=== PATIENT | male | born 1940 | race Caucasian/White ===

== ENCOUNTER 2018-06-16 08:43 | Outpatient (CLI) | payer MEDICARE, OTHER ==
[~2018-06-16] VITALS: Ht 180.3 cm; Wt 72.6 kg
[2018-06-16] MEDS ORDERED: albuterol 2.5 MG/3 ML nebule NEB PRN (09:20)
== END 2018-06-16 23:59 | disposition home or self-care (01) ==
LOC: RT 08:43
PROVIDERS: ATTEND Internal Medicine
DX: R91.8 Other nonspecific abnormal finding of lung field (principal); Z87.891 Personal history of nicotine dependence
CPT/HCPCS: 94060; 94727; 94729; 94760